=== PATIENT | female | born 1995 | race Caucasian/White ===

== ENCOUNTER 2018-07-27 00:11 | Emergency (ER) | payer SELFPAY ==
[2018-07-27] MEDS ORDERED: Charcoal ACTIVATED* 25 GM/120 ML BTL PO ONE (00:12)
[2018-07-27] MEDS ORDERED: NS 0.9% 1000 ML* 1,000 ML IV ONE ×2 (00:12→01:34)
--- NOTE | 2018-07-27 00:18 | ED ---
Substance Abuse/Use - HPI Summary HPI Summary: This patient is a 23 year old F BIBA to [facility] with a chief complaint of OD on trazodone x20 tablets since 1 hour ago. Patient states she took the medication because she wanted to get sleep. The patient notes that she called her friends because she thought she had taken too many. The patient rates the pain 0/10 in severity. Symptoms aggravated by recent breakup with her boyfriend. Symptoms alleviated by nothing. Patient reports feeling heat in her chest but cold in the rest of her body. Patient denies suicidal ideations. Hx of depression. Patient denies taking any other medications. Patient notes that the medication belonged to a friend. - History Of Current Complaint Stated Complaint: 941 Hx Obtained From: Patient Onset/Duration of Drug/ETOH Abuse: Hours - 1 hour ago Ingestion History: Type/Name Of Drug - trazodone, Amount Ingested - 20 tablets Overdose Characteristics: Oral Timing Of Abuse: Binge Use Severity Initially: Mild Severity Currently: Mild Character: Lethargic Aggravating Factor(s): Recent Stress - breakup with boyfriend Alleviating Factor(s): Nothing Associated Signs And Symptoms: Tremulous, Other: - chills - Allergies/Home Medications Allergies/Adverse Reactions: Allergies Allergy/AdvReac Type Severity Reaction Status Date / Time No Known Allergies Allergy Verified 07/27/18 00:15 Home Medications: Home Medications NK [No Home Medications Reported] 07/27/18 [History Confirmed 07/27/18] PMH/Surg Hx/FS Hx/Imm Hx Opthamlomology History: Denies: Hx Legally Blind EENT History: Denies: Hx Deafness Psychiatric History: Reports: Hx Depression - Surgical History Surgery Procedure, Year, and Place: none reported - Family History Known Family History: Negative: Seizure Disorder - Social History Occupation: Student Lives: Dormitory/Roommates Review of Systems Positive: Chills. Negative: Fever Negative: Cough Negative: Vomiting Musculoskeletal: Other - tremulous Positive: Other - emotional All Other Systems Reviewed And Are Negative: Yes Physical Exam - Summary Physical Exam Summary: GENERAL: Patient is a well-developed and nourished F who is lying comfortable in the stretcher. Patient is not in any acute respiratory distress. HEAD AND FACE: Normocephalic EYES: PERRLA, EOMI x 2. EARS: Hearing grossly intact. MOUTH: Oropharynx within normal limits. NECK: Supple, trachea is midline, no adenopathy, no JVD, no carotid bruit. CHEST: Symmetric, no tenderness at palpation LUNGS: Clear to auscultation bilaterally. No wheezing or crackles. CVS: Regular rate and rhythm, S1 and S2 present, no murmurs or gallops appreciated. ABDOMEN: Soft, non-tender. Bowel sounds are normal. No abdominal abnormal pulsations. EXTREMITIES: Full ROM in all major joints, no edema, no cyanosis or clubbing. NEURO: Alert and oriented x 3. No acute neurological deficits. Speech is normal and follows commands. Patient is tremulous SKIN: Dry and warm Triage Information Reviewed: Yes Vital Signs Reviewed: Yes Diagnostics - Laboratory Result Diagrams: 07/27/18 00:31 07/27/18 00:31 Lab Statement: Any lab studies that have been ordered have been reviewed, and results considered in the medical decision making process. - EKG 00:20 Cardiac Rate: NL - at 94 bpm EKG Rhythm: Sinus Rhythm Summary of EKG Findings: NSR at 94 bpm with prolonged IA interval at 234. Course/Dx - Course Course Of Treatment: This patient is a 23 year old F with hx depression reporting OD on trazodone x20 tablets since 1 hour ago. Patient denies SI, says she wanted to get sleep. An EKG at 00:20 reveals NSR at 94 bpm with prolonged IA interval at 234. Poison control consulted, they advised observation for 6 hours monitor for MIDDLE STITCHER depression, seizures, and EKG changes. Patient was medically cleared at 06:20. Patient will be signed out to Dr. Childs from Dr. Buchanan upon physician shift change pending E. - Diagnoses Provider Diagnoses: Stress and adjustment reaction, Overdose of trazodone Discharge - Sign-Out/Discharge Documenting (check all that apply): Sign-Out Patient - to Dr. Childs from Dr. Buchanan pending E Signing out patient TO: José Childs Receiving patient FROM: Aminata Buchanan - Discharge Plan Condition: Stable Disposition: HOME Patient Education Materials: Stress (ED) Referrals: No Primary Care Phys,NOPCP [Primary Care Provider] - - Billing Disposition and Condition Condition: STABLE Disposition: Home - Attestation Statements Document Initiated by Scribe: Yes Documenting Scribe: Genesisace Maloney Provider For Whom Scribe is Documenting (Include Credential): Aminata Buchanan MD Scribe Attestation: IGenesis, scribed for Aminata Buchanan MD on 07/28/18 at 0146. Scribe Documentation Reviewed: Yes Provider Attestation: The documentation as recorded by the scribeGenesis accurately reflects the service I personally performed and the decisions made by me, Omar Buchanan MD
[2018-07-27 00:56] LABS: ABS Basophils 0 10^3/ul (0-0.2); ABS Eosinophils 0.1 10^3/ul (0-0.6); ABS Lymphocytes 1.9 10^3/ul (1.0-4.8); ABS Monocytes 0.4 10^3/ul (0-0.8); ABS Neutrophils 5.7 10^3/ul (1.5-7.7); ABS Nucleated RBC 0 10^3/ul; Eosinophil % 1.1 % (0-6); Hematocrit 34 % (35-47); Hemoglobin 11.4 g/dl (12.0-16.0); Lymphocyte % 22.8 % (25-47); Mean Corpuscular HGB Conc 34 g/dl (31-36); Mean Corpuscular Hemoglobin 31 pg (27-31); Mean Corpuscular Volume 91 fL (80-97); Mean Platelet Volume 8.6 fL (7.4-10.4); Nucleated Red Blood Cells % 0.1; Platelet Count 189 10^3/ul (150-450); Red Blood Count 3.72 10^6/ul (4.00-5.40); Red Cell Distribution Width 14 % (10.5-15); White Blood Count 8.1 10^3/ul (3.5-10.8)
[2018-07-27 01:07] LABS: EGFR Non-African American 141.2 (>60)
[2018-07-27 05:29] LABS: Urine Appearance Clear; Urine Blood Negative (Negative); Urine Color Yellow; Urine Ketones Negative (Negative); Urine Protein Negative (Negative); Urine Specific Gravity 1.013 (1.010-1.030); Urine Urobilinogen Negative (Negative)
--- NOTE | 2018-07-27 07:11 | ED ---
Progress - Progress Note Progress Note: Patient was signed out from Dr. Buchanan upon shift change pending sobering and disposition. - EKG/XRAY/CT EKG: NSR - An EKG taken at 0639 reveals normal sinus rhythm at [address], normal axis, and a first degree AV block. Re-Evaluation - Re-Evaluation First Eval Re-Evaluation Time: 10:30 Change: Improved Comment: Patient reports feeling much better Course/Dx - Course Course Of Treatment: This patient is a 23 year old F with hx depression reporting OD on trazodone x20 tablets since 1 hour ago. Patient denies SI, says she wanted to get sleep. An EKG at 00:20 reveals NSR at 94 bpm with prolonged NC interval at 234. Poison control consulted, they advised observation for 6 hours monitor for [employer]ATOR depression, seizures, and EKG changes. Patient was medically cleared at 06:20. Patient was observed for several hours in the ER. Her EKG was normalizing with a NC down to about 200 ms. She was asymptomatic and was able to be cleared for mental health evaluation. Crisis evaluators saw and evaluated the patient and the patient was cleared for discharge with outpatient referral by Dr. Munoz. Patient reiterated her safety plan and her lack of suicidal ideation. She has plan throughout the day with her friends. She is discharged in good condition. - Diagnoses Provider Diagnoses: Stress and adjustment reaction, Overdose of trazodone Discharge - Sign-Out/Discharge Documenting (check all that apply): Patient Departure - Discharge home, Receiving Sign-Out Receiving patient FROM: Aimnata Buchanan - Upon shift change pending sobering and disposition - Discharge Plan Condition: Stable Disposition: HOME Patient Education Materials: Stress (ED) Referrals: No Primary Care Phys,NOPCP [Primary Care Provider] - - Billing Disposition and Condition Condition: STABLE Disposition: Home - Attestation Statements Document Initiated by Scribe: Yes Documenting Scribe: Marilu Alonso Provider For Whom Scribe is Documenting (Include Credential): Dr. José Childs MD Scribe Attestation: Marilu Casper, scribed for Dr. José Childs MD on 07/27/18 at 1218. Scribe Documentation Reviewed: Yes Provider Attestation: The documentation as recorded by the scribe, Marilu Day accurately reflects the service I personally performed and the decisions made by me, Dr. José Childs MD
[2018-07-27 11:06] VITALS: BP 120/94
== END 2018-07-27 11:05 | disposition home or self-care (01) ==
LOC: ED 00:11
DX: T43.214A Poisoning by selective serotonin and norepinephrine reuptake inhibitors, undetermined, initial encounter (principal)
CPT/HCPCS: 36415; 80053; 80307; 80320; 80329; 81003; 83605; 84443; 84484; 84702; 85025; 93005; 96360; 96361; 99283; 99285; A9270-GY; G0480